=== PATIENT | female | born 1945 | race Caucasian/White ===

== ENCOUNTER 2022-01-29 07:32 | Outpatient (CLI) | payer MEDICARE, OTHER ==
[2022-01-29 15:18] LABS: CALCIUM 9.9 mg/dL (8.5-10.3); CREATININE 1.1 mg/dL (0.4-1.0); POTASSIUM 4.2 mmol/L (3.5-5.0)
== END 2022-01-29 07:33 | disposition home or self-care (01) ==
LOC: LAB.S 07:32
DX: Z01.812 Encounter for preprocedural laboratory examination (principal)
CPT/HCPCS: 36415; 80048